=== PATIENT | female | born 1980 | race African-American/Black ===

== ENCOUNTER 2023-02-20 06:32 | Emergency (ER) | payer OTHER ==
[~2023-02-20] VITALS: Ht 170.2 cm; Wt 146.5 kg
[2023-02-20 06:34] VITALS: O2SAT 98
[2023-02-20] MEDS ORDERED: PENICILLIN V P500 MG PO (07:44)
== END 2023-02-20 07:58 | disposition home or self-care (01) ==
LOC: ER 06:35
DX: R05.9 Cough, unspecified (principal); J02.8 Acute pharyngitis due to other specified organisms; I10 Essential (primary) hypertension; Z20.822 Contact with and (suspected) exposure to COVID-19
CPT/HCPCS: 0223U; 36415; 83518; 99282